=== PATIENT | female | born 1935 | race Caucasian/White ===

== ENCOUNTER → 2018-08-14 | Outpatient (CLI) | payer MEDICARE ==
[~2018-08-14] MED LIST: ALBU90AE INH; BUDE10.2 INH; DILT300C2 PO; DOCU100T3 PO; FERR-46 PO; HYDR-3341 PO; KRIL1CAP PO; MAGNESIUM PO; OMEP-110 PO; [UNRECOGNIZED DRUG - OTHER] PO; [UNRECOGNIZED DRUG - OTHER] PO
[2018-08-14 09:24] LABS: BASOPHILS # (AUTO) 0.04 x10^3/uL (0-0.1); BASOPHILS % (AUTO) 1 % (0-1); EOSINOPHILS # (AUTO) 0.17 x10^3/uL (0-0.4); EOSINOPHILS % (AUTO) 3 % (1-7); LYMPHOCYTES # (AUTO) 1.44 x10^3/uL (1-3.4); LYMPHOCYTES % (AUTO) 27 % (22-44); MD NO; MEAN CORPUSCULAR HEMOGLOBIN 26.6 pg (27.0-34.8); MEAN CORPUSCULAR HGB CONC 32.3 g/dL (32.4-35.8); MEAN CORPUSCULAR VOLUME 82.4 fL (80-100); MONOCYTES # (AUTO) 0.37 x10^3/uL (0.2-0.8); MONOCYTES % (AUTO) 7 % (2-9); NEUTROPHILS # (AUTO) 3.36 x10^3/uL (1.8-6.8); NEUTROPHILS % (AUTO) 62 % (42-75); PLATELET COUNT 234 x10^3/uL (130-400); RED CELL DISTRIBUTION WIDTH 17.6 % (9.6-15.2)
[2018-08-14 09:34] LABS: ALANINE AMINOTRANSFERASE 23 U/L (12-78); ALBUMIN 3.6 g/dL (3.4-5.0); ANION GAP 6 mmol/L (5-15); CALCIUM 10.5 mg/dL (8.5-10.1); CHLORIDE 112 mmol/L (98-107); CREATININE 0.99 mg/dL (0.55-1.02); PROTHROMBIN TIME 10.3 Seconds (9.6-11.5)
[2018-08-14 09:36] LABS: ALKALINE PHOSPHATASE 118 U/L (45-117); BILIRUBIN,TOTAL 0.3 mg/dL (0.2-1.0); TOTAL PROTEIN 8.1 g/dL (6.4-8.2)
== END | disposition home or self-care (01) ==
LOC: STAR 08:08
PROVIDERS: ATTEND Specialist
DX: Z01.818 Encounter for other preprocedural examination (principal); R19.07 Generalized intra-abdominal and pelvic swelling, mass and lump
CPT/HCPCS: 36415; 80053; 85025; 85610; 85730; 86304; 93005

== ENCOUNTER 2018-08-18 10:39 | Inpatient (IN) | payer MEDICARE ==
[~2018-08-18] VITALS: Ht 162.6 cm; Wt 71.2 kg
[~2018-08-18 10:39] MED LIST changes: +BUPIVACAINE/PF-EPI 0.5% 1:200K ONE
[2018-08-18] MEDS ORDERED: LACTATED RINGERS 1,000 ML IV SCH (10:54)
[2018-08-18] MEDS ORDERED: ACETAMINOPHEN 500 MG TABLET PO ONE ×2 (11:00)
[2018-08-18] MEDS ORDERED: ONDANSETRON ODT 8 MG PO ONE ×2 (11:00)
[2018-08-18] MEDS ORDERED: LABETALOL 5MG/ML, 20ML ONE (11:30)
[2018-08-18] MEDS ORDERED: FENTANYL PF 250 MCG/5ML ONE (11:56)
[2018-08-18] MEDS ORDERED: OXYcodone 5 MG/5 ML ORAL.SOL UDC PO PRN (14:30)
[2018-08-18] MEDS ORDERED: SCOPOLAMINE PATCH, 1.5MG PATCH.TD72 TD PRN (14:30)
[2018-08-18] MEDS ORDERED: PROMETHAZINE 12.5 MG SUPP PR PRN (14:30)
[2018-08-18] MEDS ORDERED: MEPERIDINE/PF 25MG/0.5ML IVPush PRN (14:30)
[2018-08-18] MEDS ORDERED: ONDANSETRON 2MG/ML, 2ML IV PRN (14:30)
[2018-08-18] MEDS ORDERED: LABETALOL 5MG/ML, 20ML IV PRN (14:30)
[2018-08-18] MEDS ORDERED: MIDAZOLAM 1 MG/ML, 2ML IV PRN (14:30)
[2018-08-18] MEDS ORDERED: HYDROmorphone 1 MG/ML, 1ML IV PRN (14:30)
[2018-08-18] MEDS ORDERED: ALBUTEROL/IPRATROPIUM 2.5MG/0.5MG, 3 ML NPPB PRN (14:30)
[2018-08-18] MEDS ORDERED: hydrALAzine 20 MG/ML, 1ML IV PRN (14:30)
[2018-08-18] MEDS ORDERED: DEXAMETHASONE 4 MG/ML, 1ML ONE (16:29)
[2018-08-18] MEDS ORDERED: NEOSTIGMINE 1 MG/ML, 10ML ONE (16:29)
[2018-08-18] MEDS ORDERED: GLYCOPYRROLATE 0.2MG/1ML, 5ML ONE (16:29)
[2018-08-18] MEDS ORDERED: KETOROLAC 30 MG/1 ML ONE (16:29)
[2018-08-18] MEDS ORDERED: CEFAZOLIN 1,000 MG ONE (16:29)
[2018-08-18] MEDS ORDERED: ROCURONIUM 10MG/ML,5ML ONE (16:29)
[2018-08-18] MEDS ORDERED: PROPOFOL 10 MG/ML, 20ML ONE (16:29)
[2018-08-18] MEDS ORDERED: MORPHINE SULFATE 4 MG/ML, 1ML IV PRN (17:00)
[2018-08-18] MEDS ORDERED: KETOROLAC 30 MG/1 ML IVPush PRN (17:00)
[2018-08-18] MEDS ORDERED: D5%-0.45NACL+KCL 20MEQ 1,000 ML IV SCH (17:00)
[2018-08-18] MEDS ORDERED: ONDANSETRON 2MG/ML, 2ML IVPush PRN (17:00)
[2018-08-18] MEDS ORDERED: OXYcodone 5 MG/5 ML ORAL.SOL UDC ONE (17:10)
[2018-08-18] MEDS: FENTANYL PF 100 MCG/2ML IV PRN ×3 (17:10→17:55)
[2018-08-18] MEDS ORDERED: FENTANYL PF 100 MCG/2ML ONE (17:10)
[2018-08-18 20:19] VITALS: BP 132/63
[2018-08-18] MEDS ORDERED: MORPHINE SULFATE 4 MG/ML, 1ML IVPush PRN (23:00)
[2018-08-18] MEDS: FAMOTIDINE 20 MG/2 ML IVPB SCH (23:10)
[2018-08-18] MEDS ORDERED: SODIUM CHLORIDE 0.9%, 500ML IVBOLUS ONE (23:30)
[2018-08-18] MEDS ORDERED: ALBUTEROL SULFATE 2.5MG/0.5ML NPPB PRN (23:45)
[2018-08-18] MEDS ORDERED: HYDRALAZINE MC SCH (23:45)
[2018-08-18] MEDS ORDERED: [UNRECOGNIZED DRUG - OTHER] MC SCH (23:45)
[2018-08-18] MEDS ORDERED: TRIPHALA MC SCH (23:45)
[2018-08-19] MEDS: OXYcodone/APAP 5/325MG TABLET PO PRN (00:41)
[2018-08-19 02:18] VITALS: BP 130/56
[2018-08-19] MEDS ORDERED: SODIUM CHLORIDE 0.9%, 500ML IVBOLUS ONE (04:30)
[2018-08-19 04:42] LABS: BASOPHILS # (AUTO) 0.02 x10^3/uL (0-0.1); BASOPHILS % (AUTO) 0 % (0-1); EOSINOPHILS % (AUTO) 0 % (1-7); LYMPHOCYTES # (AUTO) 0.68 x10^3/uL (1-3.4); LYMPHOCYTES % (AUTO) 9 % (22-44); MD NO; MEAN CORPUSCULAR HEMOGLOBIN 27.2 pg (27.0-34.8); MEAN CORPUSCULAR HGB CONC 32.4 g/dL (32.4-35.8); MEAN CORPUSCULAR VOLUME 83.9 fL (80-100); MEAN PLATELET VOLUME 8.5 fL (7.4-10.4); MONOCYTES % (AUTO) 7 % (2-9); NEUTROPHILS # (AUTO) 6.31 x10^3/uL (1.8-6.8); NEUTROPHILS % (AUTO) 84 % (42-75); PLATELET COUNT 143 x10^3/uL (130-400); RED BLOOD COUNT 3.97 x10^6/uL (3.82-5.3); RED CELL DISTRIBUTION WIDTH 16.6 % (9.6-15.2)
[2018-08-19 04:44] LABS: ANION GAP 5 mmol/L (5-15); CALCIUM 8.8 mg/dL (8.5-10.1); CHLORIDE 110 mmol/L (98-107); CREATININE 1.49 mg/dL (0.55-1.02)
[2018-08-19 06:56] VITALS: BP 124/63
[2018-08-19] MEDS: OMEPRAZOLE 20 MG CAPSULE.DR PO SCH (10:15)
[2018-08-19] MEDS: DILTIAZEM 300 MG CAP.ER.24H PO SCH (10:16)
[2018-08-19] MEDS: FAMOTIDINE 20 MG/2 ML IVPB SCH ×3 (10:16→21:02)
[2018-08-19 12:45] VITALS: BP 105/63
[2018-08-19] MEDS: FLUTICASONE/VILANTEROL 200-25MCG/INH INH SCH (12:48)
[2018-08-19] MEDS ORDERED: D5%-0.45NACL+KCL 20MEQ 1,000 ML IV SCH (17:00)
[2018-08-19 19:41] VITALS: BP 146/69
[2018-08-20 00:13] VITALS: BP 126/57
[2018-08-20 01:15] VITALS: BP 114/48
[2018-08-20 05:04] LABS: BASOPHILS # (AUTO) 0.02 x10^3/uL (0-0.1); BASOPHILS % (AUTO) 0 % (0-1); EOSINOPHILS # (AUTO) 0.09 x10^3/uL (0-0.4); EOSINOPHILS % (AUTO) 1 % (1-7); LYMPHOCYTES # (AUTO) 1.25 x10^3/uL (1-3.4); LYMPHOCYTES % (AUTO) 17 % (22-44); MD NO; MEAN CORPUSCULAR HGB CONC 33.1 g/dL (32.4-35.8); MEAN CORPUSCULAR VOLUME 84.8 fL (80-100); MEAN PLATELET VOLUME 9.1 fL (7.4-10.4); MONOCYTES # (AUTO) 0.45 x10^3/uL (0.2-0.8); MONOCYTES % (AUTO) 6 % (2-9); NEUTROPHILS # (AUTO) 5.41 x10^3/uL (1.8-6.8); NEUTROPHILS % (AUTO) 75 % (42-75); PLATELET COUNT 129 x10^3/uL (130-400); RED BLOOD COUNT 3.71 x10^6/uL (3.82-5.3); RED CELL DISTRIBUTION WIDTH 17.2 % (9.6-15.2)
[2018-08-20 05:20] LABS: CHLORIDE 114 mmol/L (98-107)
[2018-08-20 05:25] LABS: ANION GAP 4 mmol/L (5-15); CALCIUM 9.3 mg/dL (8.5-10.1); CREATININE 1.91 mg/dL (0.55-1.02)
[2018-08-20 07:04] VITALS: BP 118/53
[2018-08-20] MEDS: FLUTICASONE/VILANTEROL 200-25MCG/INH INH SCH (10:18)
[2018-08-20] MEDS: OMEPRAZOLE 20 MG CAPSULE.DR PO SCH (10:18)
[2018-08-20] MEDS: FAMOTIDINE 20 MG/2 ML IVPB SCH (10:18)
[2018-08-20] MEDS: DILTIAZEM 300 MG CAP.ER.24H PO SCH (10:18)
[2018-08-20 13:00] VITALS: BP 122/59
[2018-08-20 20:44] VITALS: BP 123/56
[2018-08-21 04:28] VITALS: BP 138/63
[2018-08-21 07:42] VITALS: BP 132/56
[2018-08-21 08:16] LABS: BASOPHILS # (AUTO) 0.03 x10^3/uL (0-0.1); BASOPHILS % (AUTO) 1 % (0-1); EOSINOPHILS # (AUTO) 0.19 x10^3/uL (0-0.4); EOSINOPHILS % (AUTO) 4 % (1-7); LYMPHOCYTES # (AUTO) 0.91 x10^3/uL (1-3.4); LYMPHOCYTES % (AUTO) 17 % (22-44); MD NO; MEAN CORPUSCULAR HEMOGLOBIN 27.5 pg (27.0-34.8); MEAN CORPUSCULAR HGB CONC 32.7 g/dL (32.4-35.8); MEAN CORPUSCULAR VOLUME 84.1 fL (80-100); MEAN PLATELET VOLUME 8.4 fL (7.4-10.4); MONOCYTES # (AUTO) 0.41 x10^3/uL (0.2-0.8); MONOCYTES % (AUTO) 8 % (2-9); NEUTROPHILS # (AUTO) 3.89 x10^3/uL (1.8-6.8); NEUTROPHILS % (AUTO) 72 % (42-75); PLATELET COUNT 135 x10^3/uL (130-400); RED BLOOD COUNT 3.93 x10^6/uL (3.82-5.3); RED CELL DISTRIBUTION WIDTH 16.8 % (9.6-15.2)
[2018-08-21 08:21] LABS: ALANINE AMINOTRANSFERASE 17 U/L (12-78); ALBUMIN 2.6 g/dL (3.4-5.0); ANION GAP 2 mmol/L (5-15); CALCIUM 9.7 mg/dL (8.5-10.1); CHLORIDE 112 mmol/L (98-107); CREATININE 1.89 mg/dL (0.55-1.02)
[2018-08-21 08:23] LABS: ALKALINE PHOSPHATASE 96 U/L (45-117); BILIRUBIN,TOTAL 0.4 mg/dL (0.2-1.0); TOTAL PROTEIN 6.2 g/dL (6.4-8.2)
[2018-08-21] MEDS: FAMOTIDINE 20 MG/2 ML IVPB SCH (08:48)
[2018-08-21] MEDS: FLUTICASONE/VILANTEROL 200-25MCG/INH INH SCH (08:48)
[2018-08-21] MEDS: DILTIAZEM 300 MG CAP.ER.24H PO SCH (08:49)
[2018-08-21] MEDS: OMEPRAZOLE 20 MG CAPSULE.DR PO SCH (08:49)
[2018-08-21] MEDS: SODIUM CHLORIDE 0.9% 1,000 ML IV SCH ×2 (10:33→20:13)
[2018-08-21 13:15] VITALS: BP 119/57
[2018-08-21 18:58] VITALS: BP 130/53
[2018-08-22 01:56] VITALS: BP 151/53
[2018-08-22 04:42] LABS: BASOPHILS # (AUTO) 0.03 x10^3/uL (0-0.1); BASOPHILS % (AUTO) 1 % (0-1); EOSINOPHILS # (AUTO) 0.24 x10^3/uL (0-0.4); EOSINOPHILS % (AUTO) 5 % (1-7); LYMPHOCYTES # (AUTO) 0.99 x10^3/uL (1-3.4); LYMPHOCYTES % (AUTO) 19 % (22-44); MD NO; MEAN CORPUSCULAR HEMOGLOBIN 27.8 pg (27.0-34.8); MEAN CORPUSCULAR VOLUME 84.2 fL (80-100); MEAN PLATELET VOLUME 8.8 fL (7.4-10.4); MONOCYTES # (AUTO) 0.48 x10^3/uL (0.2-0.8); MONOCYTES % (AUTO) 9 % (2-9); NEUTROPHILS # (AUTO) 3.41 x10^3/uL (1.8-6.8); NEUTROPHILS % (AUTO) 66 % (42-75); PLATELET COUNT 118 x10^3/uL (130-400); RED BLOOD COUNT 3.49 x10^6/uL (3.82-5.3)
[2018-08-22 05:02] LABS: ALANINE AMINOTRANSFERASE 15 U/L (12-78); ALBUMIN 2.2 g/dL (3.4-5.0); ALKALINE PHOSPHATASE 75 U/L (45-117); BILIRUBIN,TOTAL 0.3 mg/dL (0.2-1.0); CALCIUM 9.6 mg/dL (8.5-10.1); TOTAL PROTEIN 5.4 g/dL (6.4-8.2)
[2018-08-22 05:09] LABS: ANION GAP 5 mmol/L (5-15); CHLORIDE 116 mmol/L (98-107)
[2018-08-22] MEDS: SODIUM CHLORIDE 0.9% 1,000 ML IV SCH ×2 (05:53→15:45)
[2018-08-22 06:50] VITALS: BP 153/69
[2018-08-22] MEDS: FAMOTIDINE 20 MG/2 ML IVPB SCH (07:43)
[2018-08-22] MEDS: FLUTICASONE/VILANTEROL 200-25MCG/INH INH SCH (07:44)
[2018-08-22] MEDS: DILTIAZEM 300 MG CAP.ER.24H PO SCH (07:44)
[2018-08-22] MEDS: OMEPRAZOLE 20 MG CAPSULE.DR PO SCH (07:44)
[2018-08-22 12:59] VITALS: BP 125/58
[2018-08-22 19:06] VITALS: BP 149/66
[2018-08-22] MEDS: OXYcodone/APAP 5/325MG TABLET PO PRN (20:58)
[2018-08-23] MEDS: OXYcodone/APAP 5/325MG TABLET PO PRN ×3 (01:38→13:24)
[2018-08-23] MEDS: SODIUM CHLORIDE 0.9% 1,000 ML IV SCH ×3 (01:39→21:55)
[2018-08-23 01:40] VITALS: BP 151/67
[2018-08-23 07:00] VITALS: BP 153/66
[2018-08-23] MEDS: FAMOTIDINE 20 MG/2 ML IVPB SCH (09:06)
[2018-08-23] MEDS: DILTIAZEM 300 MG CAP.ER.24H PO SCH (09:06)
[2018-08-23] MEDS: FLUTICASONE/VILANTEROL 200-25MCG/INH INH SCH (09:06)
[2018-08-23] MEDS: OMEPRAZOLE 20 MG CAPSULE.DR PO SCH (09:06)
[2018-08-23 12:58] VITALS: BP 137/66
[2018-08-23 20:00] VITALS: BP 164/52
[2018-08-24 01:42] VITALS: BP 146/59
[2018-08-24 04:26] LABS: BASOPHILS # (AUTO) 0.03 x10^3/uL (0-0.1); BASOPHILS % (AUTO) 1 % (0-1); EOSINOPHILS # (AUTO) 0.14 x10^3/uL (0-0.4); EOSINOPHILS % (AUTO) 2 % (1-7); LYMPHOCYTES # (AUTO) 0.94 x10^3/uL (1-3.4); LYMPHOCYTES % (AUTO) 17 % (22-44); MD NO; MEAN CORPUSCULAR HEMOGLOBIN 27.7 pg (27.0-34.8); MEAN CORPUSCULAR HGB CONC 33.2 g/dL (32.4-35.8); MEAN CORPUSCULAR VOLUME 83.4 fL (80-100); MONOCYTES # (AUTO) 0.66 x10^3/uL (0.2-0.8); MONOCYTES % (AUTO) 12 % (2-9); NEUTROPHILS % (AUTO) 69 % (42-75); PLATELET COUNT 151 x10^3/uL (130-400); RED BLOOD COUNT 3.67 x10^6/uL (3.82-5.3); RED CELL DISTRIBUTION WIDTH 16.3 % (9.6-15.2)
[2018-08-24 04:33] LABS: ALBUMIN 2.2 g/dL (3.4-5.0); ANION GAP 5 mmol/L (5-15); CHLORIDE 111 mmol/L (98-107)
[2018-08-24 04:39] LABS: ALANINE AMINOTRANSFERASE 35 U/L (12-78); ALKALINE PHOSPHATASE 181 U/L (45-117); BILIRUBIN,TOTAL 0.4 mg/dL (0.2-1.0); CREATININE 1.56 mg/dL (0.55-1.02); TOTAL PROTEIN 5.6 g/dL (6.4-8.2)
[2018-08-24 07:12] VITALS: BP 151/62
[2018-08-24] MEDS: SODIUM CHLORIDE 0.9% 1,000 ML IV SCH ×2 (07:21→17:27)
[2018-08-24] MEDS: OMEPRAZOLE 20 MG CAPSULE.DR PO SCH (07:53)
[2018-08-24] MEDS: FAMOTIDINE 20 MG/2 ML IVPB SCH (09:00)
[2018-08-24] MEDS: DILTIAZEM 300 MG CAP.ER.24H PO SCH (09:00)
[2018-08-24] MEDS: SIMETHICONE 80 MG CHEW TAB PO PRN (09:00)
[2018-08-24] MEDS: FLUTICASONE/VILANTEROL 200-25MCG/INH INH SCH (09:00)
[2018-08-24] MEDS: OXYcodone/APAP 5/325MG TABLET PO PRN ×4 (09:14→20:10)
[2018-08-24 14:39] VITALS: BP 145/56
[2018-08-24 20:05] VITALS: BP 146/64
[2018-08-25] MEDS: OXYcodone/APAP 5/325MG TABLET PO PRN ×3 (01:20→21:47)
[2018-08-25 01:25] VITALS: BP 152/62
[2018-08-25] MEDS: SODIUM CHLORIDE 0.9% 1,000 ML IV SCH ×2 (03:25→15:50)
[2018-08-25 07:31] VITALS: BP 134/58
[2018-08-25] MEDS: DILTIAZEM 300 MG CAP.ER.24H PO SCH (09:26)
[2018-08-25] MEDS: FAMOTIDINE 20 MG/2 ML IVPB SCH ×2 (09:26→09:27)
[2018-08-25] MEDS: FLUTICASONE/VILANTEROL 200-25MCG/INH INH SCH (09:28)
[2018-08-25] MEDS: OMEPRAZOLE 20 MG CAPSULE.DR PO SCH (09:34)
[2018-08-25] MEDS: SIMETHICONE 80 MG CHEW TAB PO PRN (09:39)
[2018-08-25 12:56] VITALS: BP 131/54
[2018-08-25 21:19] VITALS: BP 164/62
[2018-08-26 01:40] VITALS: BP 171/60
[2018-08-26 02:16] VITALS: BP 127/63
[2018-08-26] MEDS: OXYcodone/APAP 5/325MG TABLET PO PRN ×4 (02:20→17:21)
[2018-08-26] MEDS: SODIUM CHLORIDE 0.9% 1,000 ML IV SCH (02:20)
[2018-08-26 07:14] VITALS: BP 154/63
[2018-08-26] MEDS: OMEPRAZOLE 20 MG CAPSULE.DR PO SCH (07:54)
[2018-08-26] MEDS: DILTIAZEM 300 MG CAP.ER.24H PO SCH (09:00)
[2018-08-26] MEDS: FLUTICASONE/VILANTEROL 200-25MCG/INH INH SCH (09:00)
[2018-08-26 09:32] LABS: BASOPHILS # (AUTO) 0.02 x10^3/uL (0-0.1); BASOPHILS % (AUTO) 0 % (0-1); EOSINOPHILS # (AUTO) 0.02 x10^3/uL (0-0.4); EOSINOPHILS % (AUTO) 0 % (1-7); LYMPHOCYTES # (AUTO) 0.78 x10^3/uL (1-3.4); LYMPHOCYTES % (AUTO) 9 % (22-44); MD NO; MEAN CORPUSCULAR HEMOGLOBIN 27.3 pg (27.0-34.8); MEAN CORPUSCULAR HGB CONC 32.3 g/dL (32.4-35.8); MEAN CORPUSCULAR VOLUME 84.5 fL (80-100); MEAN PLATELET VOLUME 7.7 fL (7.4-10.4); MONOCYTES # (AUTO) 0.73 x10^3/uL (0.2-0.8); MONOCYTES % (AUTO) 9 % (2-9); NEUTROPHILS # (AUTO) 6.79 x10^3/uL (1.8-6.8); NEUTROPHILS % (AUTO) 81 % (42-75); PLATELET COUNT 222 x10^3/uL (130-400); RED BLOOD COUNT 4.09 x10^6/uL (3.82-5.3); RED CELL DISTRIBUTION WIDTH 15.3 % (9.6-15.2)
[2018-08-26 09:41] LABS: ANION GAP 4 mmol/L (5-15); CALCIUM 9.9 mg/dL (8.5-10.1); CHLORIDE 107 mmol/L (98-107); CREATININE 1.52 mg/dL (0.55-1.02)
[2018-08-26] MEDS: SIMETHICONE 80 MG CHEW TAB PO PRN (10:55)
[2018-08-26 12:37] VITALS: BP 166/61
[2018-08-26] MEDS ORDERED: OXYC-302 PO (14:36)
[2018-08-26] MEDS ORDERED: ONDA4TAB7 PO (14:36)
[2018-08-26] MEDS ORDERED: SIME80TA15 PO (15:07)
[2018-08-27] MEDS ORDERED: FAMOTIDINE 20 MG TABLET PO SCH (09:00)
== END 2018-08-26 18:21 | disposition home health service (06) | DRG 736 ==
LOC: OUT 10:39 → ORIP 16:48 → 3NW 18:35
PROVIDERS: ADMIT Specialist; ATTEND Specialist
PROC: 0UT74ZZ Resection of Bilateral Fallopian Tubes, Percutaneous Endoscopic Approach (ICD-10-PCS; 2018-08-18)
PROC: 0UT24ZZ Resection of Bilateral Ovaries, Percutaneous Endoscopic Approach (ICD-10-PCS; 2018-08-18)
PROC: 0TN74ZZ Release Left Ureter, Percutaneous Endoscopic Approach (ICD-10-PCS; 2018-08-18)
PROC: 0DBN4ZZ Excision of Sigmoid Colon, Percutaneous Endoscopic Approach (ICD-10-PCS; 2018-08-18)
PROC: 0D1N4Z4 Bypass Sigmoid Colon to Cutaneous, Percutaneous Endoscopic Approach (ICD-10-PCS; 2018-08-18)
PROC: 8E0W4CZ Robotic Assisted Procedure of Trunk Region, Percutaneous Endoscopic Approach (ICD-10-PCS; 2018-08-18)
PROC: 0UT94ZZ Resection of Uterus, Percutaneous Endoscopic Approach (ICD-10-PCS; principal; 2018-08-18 13:00)
DX: C56.2 Malignant neoplasm of left ovary (principal); E43 Unspecified severe protein-calorie malnutrition; N17.0 Acute kidney failure with tubular necrosis; C56.1 Malignant neoplasm of right ovary; R33.9 Retention of urine, unspecified; D64.9 Anemia, unspecified; N18.9 Chronic kidney disease, unspecified; R09.02 Hypoxemia; I12.9 Hypertensive chronic kidney disease with stage 1 through stage 4 chronic kidney disease, or unspecified chronic kidney disease; J45.909 Unspecified asthma, uncomplicated; Z90.710 Acquired absence of both cervix and uterus
CPT/HCPCS: 36415; 80048; 80053; 85025; 86850; 86900; 86923; 88307; G0378; J0690; J1100; J1885; J2405; J2704; J2710; J3010; J3490; Q0162; J3480; J7030; J7040; J7120; S0028

== ENCOUNTER 2019-04-13 07:48 | Outpatient (CLI) | payer MEDICARE ==
[~2019-04-13 07:48] MED LIST changes: -BUPIVACAINE/PF-EPI 0.5% 1:200K ONE; +ONDA4TAB7 PO; +OXYC-302 PO; +SIME80TA15 PO
== END 2019-04-13 23:59 | disposition home or self-care (01) ==
LOC: RAD 07:48
PROVIDERS: ATTEND Internal Medicine Hematology & Oncology
DX: Z45.2 Encounter for adjustment and management of vascular access device (principal); C56.9 Malignant neoplasm of unspecified ovary
CPT/HCPCS: 36573; C1751

== ENCOUNTER → 2019-12-01 | Outpatient (CLI) | payer MEDICARE ==
[~2019-12-01] MED LIST changes: -KRIL1CAP PO; +KRIL1CAP7 PO
[2019-12-01 09:50] LABS: BASOPHILS # (AUTO) 0.03 x10^3/uL (0-0.1); BASOPHILS % (AUTO) 1 % (0-1); EOSINOPHILS # (AUTO) 0.09 x10^3/uL (0-0.4); EOSINOPHILS % (AUTO) 2 % (1-7); LYMPHOCYTES # (AUTO) 1.04 x10^3/uL (1-3.4); LYMPHOCYTES % (AUTO) 18 % (22-44); MD NO; MEAN CORPUSCULAR HEMOGLOBIN 28.5 pg (27.0-34.8); MEAN CORPUSCULAR HGB CONC 32.3 g/dL (32.4-35.8); MEAN CORPUSCULAR VOLUME 88.1 fL (80-100); MEAN PLATELET VOLUME 6.7 fL (7.4-10.4); MONOCYTES # (AUTO) 0.49 x10^3/uL (0.2-0.8); MONOCYTES % (AUTO) 8 % (2-9); NEUTROPHILS # (AUTO) 4.17 x10^3/uL (1.8-6.8); NEUTROPHILS % (AUTO) 72 % (42-75); PLATELET COUNT 168 x10^3/uL (130-400); RED BLOOD COUNT 4.12 x10^6/uL (3.82-5.3); RED CELL DISTRIBUTION WIDTH 14.9 % (9.6-15.2)
[2019-12-01 09:54] LABS: INTERNATIONAL NORMALIZED RATIO 0.93 (0.93-1.1); PROTHROMBIN TIME 9.9 Seconds (9.6-11.5)
[2019-12-01 09:56] LABS: ALANINE AMINOTRANSFERASE 8 U/L (12-78); ANION GAP 5 mmol/L (5-15); CALCIUM 10.4 mg/dL (8.5-10.1); CHLORIDE 111 mmol/L (98-107)
[2019-12-01 09:59] LABS: ALKALINE PHOSPHATASE 119 U/L (45-117); BILIRUBIN,TOTAL 0.3 mg/dL (0.2-1.0); CREATININE 1.42 mg/dL (0.55-1.02); TOTAL PROTEIN 7.7 g/dL (6.4-8.2)
== END | disposition home or self-care (01) ==
LOC: STAR 08:40
PROVIDERS: ATTEND Specialist
DX: Z01.818 Encounter for other preprocedural examination (principal); C56.9 Malignant neoplasm of unspecified ovary; N13.30 Unspecified hydronephrosis; K46.9 Unspecified abdominal hernia without obstruction or gangrene; M95.4 Acquired deformity of chest and rib
CPT/HCPCS: 36415; 71046; 80053; 85025; 85610; 85730; 93005

== ENCOUNTER 2019-12-02 09:05 | Day surgery (SDC) | payer MEDICARE ==
[2019-12-02] MEDS ORDERED: VISIPAQUE 270 MG/ML, 50ML BOTTLE ONE (09:44)
== END 2019-12-02 23:59 | disposition home or self-care (01) ==
LOC: RAD 09:05
PROVIDERS: ATTEND Specialist
DX: C56.2 Malignant neoplasm of left ovary (principal); N13.1 Hydronephrosis with ureteral stricture, not elsewhere classified; Z93.3 Colostomy status
CPT/HCPCS: 50431; Q9966; 74425

== ENCOUNTER → 2019-12-04 | Outpatient (CLI) | payer MEDICARE ==
[~2019-12-04] MED LIST changes: +REGADENOSON 0.4 MG/5 ML SYRINGE ONE
== END | disposition home or self-care (01) ==
LOC: CFH 11:55
PROVIDERS: ATTEND Internal Medicine Cardiovascular Disease
DX: Z01.810 Encounter for preprocedural cardiovascular examination (principal); I21.29 ST elevation (STEMI) myocardial infarction involving other sites
CPT/HCPCS: 78452; 93017; A9502; J2785

== ENCOUNTER 2019-12-30 13:13 | Outpatient (CLI) | payer MEDICARE ==
[~2019-12-30 13:13] MED LIST changes: +HYDR-3240 PO; -REGADENOSON 0.4 MG/5 ML SYRINGE ONE
== END 2019-12-30 23:59 | disposition home or self-care (01) ==
LOC: RAD 13:13
PROVIDERS: ATTEND Registered Nurse Maternal Newborn
DX: C56.9 Malignant neoplasm of unspecified ovary (principal); K46.9 Unspecified abdominal hernia without obstruction or gangrene; R59.0 Localized enlarged lymph nodes; R19.00 Intra-abdominal and pelvic swelling, mass and lump, unspecified site; R97.1 Elevated cancer antigen 125 [CA 125]; N13.30 Unspecified hydronephrosis; K21.9 Gastro-esophageal reflux disease without esophagitis
CPT/HCPCS: 51600; 74430; Q9958

== ENCOUNTER → 2020-01-29 | Outpatient (CLI) | payer MEDICARE | END | disposition home or self-care (01) | LOC: RAD 12:11 | PROVIDERS: ATTEND Internal Medicine Hematology & Oncology | DX: C56.9 Malignant neoplasm of unspecified ovary (principal) | CPT/HCPCS: 36573; C1751 ==